=== PATIENT | male | born 1995 | race African-American/Black ===

== ENCOUNTER 2020-06-24 12:40 | Emergency (ER) | payer MEDICAID, OTHER, SELFPAY ==
[2020-06-24] MEDS ORDERED: Fentanyl 100 MCG/2 ML VIAL ONE (12:54)
[2020-06-24] MEDS ORDERED: Rocuronium Bromide 10 MG/ML (10ML VIAL) ONE ×2 (12:55→16:08)
[2020-06-24] MEDS ORDERED: Ondansetron PF 4 MG/2 ML Vial ONE (12:55)
[2020-06-24 12:59] LABS: #Basophils 0.2 thou/uL (0.0-0.2); #Eosinphils 0.1 thou/uL (0.0-0.7); #Lymphocytes 2.8 thou/uL (1.20-3.40); #Monocytes 0.5 thou/uL (0.11-0.59); #Neutrophils 2.6 thou/uL (1.40-6.50); %Basophils 2.9 % (0.0-1.0); %Eosinophils 1.7 % (0.0-10.0); %Lymphocytes 45.8 % (21.0-51.0); %Neutrophils 41.6 % (42.0-75.0); Hemoglobin 15.6 g/dL (14.0-18.0); Mean Corpuscular HGB CONC 32.7 g/dL (32.0-36.0); Mean Corpuscular Hemoglobin 30.8 pg (27.0-31.0); Mean Corpuscular Volume 94.2 fL (78.0-98.0); Mean Platelet Volume 6.6 fL (7.4-10.4); Platelet Count 237 thou/uL (130-400); RBC Distribution Width 11.5 % (11.5-14.5); Red Blood Cell (RBC) Count 5.05 mill/uL (4.70-6.10); White Blood Cell (WBC) Count 6.2 thou/uL (4.8-10.8)
[2020-06-24 13:16] LABS: ALT (SGPT) 23 U/L (8-55); AST (SGOT) 24 U/L (5-34); Albumin 4.8 g/dL (3.5-5.0); Alkaline Phosphatase 55 U/L (40-110); Anion Gap 16 mmol/L (10-20); BUN (Urea Nitrogen) 13 mg/dL (8.9-20.6); Bilirubin, Total 1.2 mg/dL (0.2-1.2); Calc. Creatinine Clearance 0 mL/min (70-130); Calcium 9.5 mg/dL (7.8-10.44); Carbon Dioxide 23 mmol/L (22-29); Chloride 102 mmol/L (98-107); Estimated GFR-MDRD 68; Glucose 118 mg/dL (70-105); Protein, Total 7.8 g/dL (6.0-8.3); Sodium 138 mmol/L (136-145)
[2020-06-24] MEDS ORDERED: Propofol 1,000 MG/100 ML VIAL IV ONE (13:19)
[2020-06-24] MEDS ORDERED: Boostrix 0.5 ML VIAL ONE (13:19)
[2020-06-24 13:46] LABS: Base Excess-Venous -0.4 mmol/L (-2.0 to 3.0); Bicarbonate (HCO3v) 23.4 mmol/L (22.0-28.0); CO2 Tension (PvCO2) 35.3 mmHg (40.0-50.0); Calcium, Ionized 1.12 mmol/L (1.15-1.33); Chloride 105 mmol/L (98-107); Hemoglobin - Calc 16.4 g/dL (14.0-18.0); Sodium 140 mmol/L (138-145); T. Carbon Dioxide 24.5 mmol/L (22.0-28.0); vO2 Saturation-calc 71.8 % (60.0-85.0)
--- NOTE | 2020-06-24 15:44 | RAD ---
PORTABLE CHEST: DATE: 06/24/2020. FINDINGS: An AP portable film at 1327 shows the patient has been intubated. The endotracheal tube is about 2-3 cm above the rahel, appropriately placed. The lungs are fully inflated and clear. There is no pul monary edema or pleural effusion. The heart is normal in size. IMPRESSION: No acute thoracic findings. Endotracheal tube position is good. POS: HOME
== END 2020-06-24 14:10 | disposition short-term general hospital (02) ==
LOC: BURERS 12:40
DX: T22.031A Burn of unspecified degree of right upper arm, initial encounter (principal); T22.032A Burn of unspecified degree of left upper arm, initial encounter; T20.00XA Burn of unspecified degree of head, face, and neck, unspecified site, initial encounter; F17.210 Nicotine dependence, cigarettes, uncomplicated; X08.8XXA Exposure to other specified smoke, fire and flames, initial encounter
CPT/HCPCS: 31500; 51702; 71045; 80053; 82330; 82550; 82803; 83605; 85025; 90471; 90715; 96365; 96375; J2405; J2704; J3010